=== PATIENT | male | born 1995 | race Caucasian/White ===

== ENCOUNTER 2017-07-07 04:25 | Emergency (ER) | payer BC ==
[2017-07-07] MEDS ORDERED: Acetaminophen/HYDROcodone 325-10 MG Tab PO ONE (04:26)
[2017-07-07] MEDS ORDERED: Bacitracin/Polymyxin B Ophth Oint 3.5 GM Tube EYEBOTH ONE (04:26)
[2017-07-07 04:39] VITALS: BP 148/74
[2017-07-07] MEDS: Tetracaine HCl/PF 0.5% 4 ML Bottle EYEBOTH ONE (05:08)
[2017-07-07] MEDS: Fluorescein 1 MG Ophth Strip EYEBOTH ONE (05:09)
--- NOTE | 2017-07-07 05:32 | EDM.PDOC ---
ED HPI GENERAL MEDICAL PROBLEM - General Chief Complaint: ENT Problem Stated Complaint: EYES BURNING [id number] Time Seen by Provider: 07/07/17 04:45 Source of Information: Reports: Patient - History of Present Illness INITIAL COMMENTS - FREE TEXT/NARRATIVE: ED with complaint of bilateral eye pain, since waking. 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 eyes Pain Score (Numeric/FACES): 10 - Related Data Allergies Allergy/AdvReac Type Severity Reaction Status Date / Time No Known Allergies Allergy Verified 07/07/17 04:35 Home Meds: Home Meds traZODone HCl [Trazodone HCl] 50 mg PO 07/07/17 [History] Past Medical History - Past Health History Medical/Surgical History: Denies Medical/Surgical History HEENT History: Reports: None Cardiovascular History: Reports: None Respiratory History: Reports: None Gastrointestinal History: Reports: None Genitourinary History: Reports: None Musculoskeletal History: Reports: Fracture Other Musculoskeletal History: right hand Neurological History: Reports: None Psychiatric History: Reports: None Endocrine/Metabolic History: Reports: None Hematologic History: Reports: None Immunologic History: Reports: None Oncologic (Cancer) History: Reports: None Dermatologic History: Reports: None - Infectious Disease History Infectious Disease History: Reports: None Social & Family History - Family History Family Medical History: Noncontributory - Tobacco Use Smoking Status *Q: Never Smoker Second Hand Smoke Exposure: No - Caffeine Use Caffeine Use: Reports: None - Recreational Drug Use Recreational Drug Use: No ED ROS ENT - Review of Systems Review Of Systems: ROS reveals no pertinent complaints other than HPI. ED EXAM, ENT - Physical Exam Exam: See Below Exam Limited By: No Limitations General Appearance: Moderate Distress Eye Exam: Bilateral Eye: Conjunctival Injection, PERRL (photosensitivity) Ears: Normal External Exam Head: Normocephalic Respiratory/Chest: No Respiratory Distress Neurological: Alert, Oriented, Normal Cognition Skin: Warm, Dry, Erythema (upper face forehead) ED ENT PROCEDURES - Additional/Other Procedure(s) Other (Free Text) Procedure(s): Eye exam with tetracaine and fluoroscene bilaterally. No corneal abrasion. Pinpoint dark marking 2 oclock position to left eye, appears below surface, no roughness. Possible normal variant coloration or older, no rust ring. Visual testing per nursing. No other FB visulaized. Eyes flushed with NS. Course - Vital Signs Last Recorded V/S: Last Vital Signs Temp 98.3 F 07/07/17 04:39 Pulse 68 07/07/17 04:39 Resp 16 07/07/17 04:39 BP 148/74 H 07/07/17 04:39 Pulse Ox 98 07/07/17 04:39 - Orders/Labs/Meds Meds: Medications Discontinued Medications Generic Name Dose Route Start Last Admin Trade Name Kim PRSonja Reason Stop Dose Admin Hydrocodone Bitart/Acetaminophen Confirm 07/07/17 05:34 07/07/17 05:46 [place] 325-10 Mg Administered 07/07/17 05:35 Not Given Dose 2 tab .ROUTE .STK-MED ONE Hydrocodone Bitart/Acetaminophen 2 tab 07/07/17 04:26 [place] 325-10 Mg PO 07/07/17 04:27 .STK-MED ONE Bacitracin/Polymyxin B Sulfate Confirm 07/07/17 05:33 07/07/17 05:46 Polysporin Ophth Oint Administered 07/07/17 05:34 Not Given Dose 3.5 gm .ROUTE .STK-MED ONE Bacitracin/Polymyxin B Sulfate 3.5 gm 07/07/17 04:26 Polysporin Ophth Oint EYEBOTH 07/07/17 04:27 .STK-MED ONE Fluorescein Sodium 1 mg 07/07/17 04:57 07/07/17 05:09 Ful-Agustina EYEBOTH 07/07/17 04:58 1 mg ONETIME ONE Administration Tetracaine HCl 1 ml 07/07/17 04:57 07/07/17 05:08 Tetracaine 0.5% Steri-Unit [place] EYEBOTH 07/07/17 04:58 2 drop ASDIRECTED ONE Administration - Re-Assessments/Exams Free Text/Narrative Re-Assessment/Exam: Discussed need for follow up at eye clinic for further evaluation later today. 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
[2017-07-07] MEDS: Bacitracin/Polymyxin B Ophth Oint 3.5 GM Tube ONE (05:46)
[2017-07-07] MEDS: Acetaminophen/HYDROcodone 325-10 MG Tab ONE (05:46)
== END 2017-07-07 05:45 | disposition home or self-care (01) ==
LOC: DL.ED 04:25
DX: L53.8 Other specified erythematous conditions (principal); W89.0XXA Exposure to welding light (arc), initial encounter
CPT/HCPCS: 99283; A9270

== ENCOUNTER 2018-09-29 00:01 | Emergency (ER) | payer BC ==
[2018-09-29 00:08] VITALS: BP 146/66
[2018-09-29] MEDS ORDERED: Lidocaine 1% 30 ML SDV INJECT ONE (00:09)
[2018-09-29] MEDS ORDERED: Bacitracin Oint 1 GM U/D Packet TOP ONE (00:09)
--- NOTE | 2018-09-29 00:35 | EDM.PDOC ---
ED HPI GENERAL MEDICAL PROBLEM - General Chief Complaint: Laceration Stated Complaint: CUT LIP [id number] Time Seen by Provider: 09/29/18 00:10 Source of Information: Reports: Patient History Limitations: Reports: No Limitations - History of Present Illness INITIAL COMMENTS - FREE TEXT/NARRATIVE: ED with c/o lip laceration from light globe that fell. - Related Data Allergies Allergy/AdvReac Type Severity Reaction Status Date / Time No Known Allergies Allergy Verified 09/29/18 00:07 Home Meds: Home Meds . [No Known Home Meds] 09/29/18 [History] Past Medical History - Past Health History Medical/Surgical History: Denies Medical/Surgical History HEENT History: Reports: None Cardiovascular History: Reports: None Respiratory History: Reports: None Gastrointestinal History: Reports: None Genitourinary History: Reports: None Musculoskeletal History: Reports: Fracture Other Musculoskeletal History: right hand Neurological History: Reports: None Psychiatric History: Reports: None Endocrine/Metabolic History: Reports: None Hematologic History: Reports: None Immunologic History: Reports: None Oncologic (Cancer) History: Reports: None Dermatologic History: Reports: None - Infectious Disease History Infectious Disease History: Reports: None Social & Family History - Family History Family Medical History: Noncontributory - Tobacco Use Smoking Status *Q: Never Smoker Second Hand Smoke Exposure: No - Caffeine Use Caffeine Use: Reports: None - Alcohol Use Date of Last Drink: 09/28/18 - Recreational Drug Use Recreational Drug Use: No ED ROS GENERAL - Review of Systems Review Of Systems: ROS reveals no pertinent complaints other than HPI. ED EXAM, SKIN/RASH Exam: See Below Exam Limited By: No Limitations General Appearance: Alert, No Apparent Distress Eye Exam: Bilateral Eye: EOMI Ears: Normal External Exam Nose: Normal Inspection Throat/Mouth: Normal Voice, Other (right upper outer lip laceration no dental trauma) Head: Atraumatic, Normocephalic Respiratory/Chest: No Respiratory Distress, Normal Breath Sounds Cardiovascular: Normal Peripheral Pulses Neurological: Alert, Oriented Psychiatric: Normal Affect, Normal Mood Skin: Warm, Dry Location, Skin: Face, Other (5mm vertical right upper outer lip) ED SKIN PROCEDURES - Laceration/Wound Repair Right Other Lac/Wound length In cm: 0.5 (right upper outer lip) Appearance: Superficial Distal NVT: Neuro & Vascular Intact Anesthetic Type: Local Local Anesthesia - Lidocaine (Xylocaine): 1% Plain Local Anesthetic Volume: 1cc Skin Prep: Chlorhexidine (Hibiciens), Saline Closed with: Sutures Suture Size: other (5-0) # of Sutures: 2 Course - Vital Signs Last Recorded V/S: Last Vital Signs Temp 98.5 F 09/29/18 00:06 Pulse 85 09/29/18 00:06 Resp 17 09/29/18 00:06 BP 146/66 H 09/29/18 00:06 Pulse Ox 99 09/29/18 00:06 - Orders/Labs/Meds Meds: Medications Discontinued Medications Generic Name Dose Route Start Last Admin Trade Name Kim PRN Reason Stop Dose Admin Bacitracin 1 dose 09/29/18 00:09 Bacitracin Oint 1 Gm TOP 09/29/18 00:10 ONETIME ONE Lidocaine HCl 30 ml 09/29/18 00:09 09/29/18 00:15 Xylocaine-Mpf 1% INJECT 09/29/18 00:10 30 ml ONETIME ONE Administration Departure - Departure Time of Disposition: 00:30 Disposition: Home, Self-Care 01 Condition: Good Clinical Impression: Lip laceration Qualifiers: Encounter type: initial encounter Qualified Code(s): S01.511A - Laceration without foreign body of lip, initial encounter - Discharge Information *PRESCRIPTION DRUG MONITORING PROGRAM REVIEWED*: Not Applicable *COPY OF PRESCRIPTION DRUG MONITORING REPORT IN PATIENT TAMMY: Not Applicable Instructions: Mouth Laceration Additional Instructions: tylenol or ibuprofen every 4 hours as needed for discomfort cool pack to lip tonight sutures out 7-10 days in clinic follow up if redness swelling or drainage wash area with soap and water at least twice daily gently blot dry
== END 2018-09-29 00:36 | disposition home or self-care (01) ==
LOC: DL.ED 00:01
DX: S01.511A Laceration without foreign body of lip, initial encounter (principal); W19.XXXA Unspecified fall, initial encounter
CPT/HCPCS: 12001; 12011; 99282; J2001

== ENCOUNTER 2023-10-05 07:02 | Day surgery (SDC) | payer BC ==
[~2023-10-05 07:02] MED LIST: Midazolam 1 MG/ML 2 ML SDV ONE; fentaNYL 100 MCG/2 ML SDV ONE
[2023-10-05] MEDS ORDERED: fentaNYL 100 MCG/2 ML SDV IV ONE (07:03)
[2023-10-05] MEDS ORDERED: Midazolam 1 MG/ML 2 ML SDV IV ONE (07:03)
[2023-10-05] MEDS: Dextrose 5%-0.45% NaCl 1,000 ML IV SCH (07:10)
[2023-10-05] MEDS: fentaNYL 100 MCG/2 ML SDV IV ONE ×2 (07:25→07:26)
[2023-10-05] MEDS: Midazolam 1 MG/ML 2 ML SDV IV ONE ×3 (07:26→07:28)
[2023-10-05 07:45] VITALS: BP 126/64; PULSE 77
[2023-10-05] MEDS ORDERED: Midazolam 1 MG/ML 2 ML SDV ONE (07:57)
== END 2023-10-05 09:10 | disposition home or self-care (01) ==
LOC: DL.ENDO 07:02
PROVIDERS: ATTEND Internal Medicine Gastroenterology
DX: K29.50 Unspecified chronic gastritis without bleeding (principal); K21.9 Gastro-esophageal reflux disease without esophagitis; F12.929 Cannabis use, unspecified with intoxication, unspecified; Z86.16 Personal history of COVID-19
CPT/HCPCS: 43239; 87077; J2250; J3010; J7042

== ENCOUNTER 2023-12-26 09:25 | Emergency (ER) | payer BC ==
[2023-12-26] MEDS: Sodium Chloride 0.9% 1,000 ML IV SCH (11:45)
[2023-12-26 11:46] LABS: BASOPHILS PERCENT AUTO 0.3 % (0.0-1.0); HEMATOCRIT 45.7 % (40.0-54.0); HEMOGLOBIN 15.5 g/dL (14.0-18.0); LYMPHOCYTES PERCENT AUTO 15.3 % (20.5-50.1); MEAN CORPUSCULAR HEMOGLOBIN 31.1 pg (27.0-34.0); MEAN CORPUSCULAR HGB CONC 33.9 g/dL (33.0-35.0); MEAN CORPUSCULAR VOLUME 91.6 fL (80-100); MONOCYTES PERCENT AUTO 10.4 % (2-8); PLATELET COUNT,PLT 218 10^3/uL (150-450); RED BLOOD CELL COUNT 4.99 10^6/uL (4.6-6.2)
[2023-12-26 12:03] LABS: AMYLASE 43 U/L (25-115); LIPASE 37 U/L (16-77)
[2023-12-26] MEDS: Iopamidol 612 MG/ML 100 ML Bottle IVPUSH ONE (12:03)
[2023-12-26 12:08] LABS: A/G RATIO 1.2; ALBUMIN 4.1 g/dL (3.4-5.0); ANION GAP 11.3 mEq/L (7-13); BILIRUBIN TOTAL 0.4 mg/dL (0.2-1.0); C-REACTIVE PROTEIN 0.55 ng/dL (<=0.50); CALCIUM 9.1 mg/dL (8.5-10.1); EST CRCL DRUG DOSING (CG) 132.61 mL/min; POTASSIUM,K 4.3 mmol/L (3.5-5.1); PROTEIN TOTAL,TP 7.4 g/dL (6.4-8.2)
[2023-12-26 12:31] LABS: SEDIMENTATION RATE MANUAL 2 mm/hr (0-15)
[2023-12-26] MEDS: Iopamidol 755 Mg/ML 100 ML Bottle IVPUSH ONE (13:08)
[2023-12-26 13:10] LABS: BILIRUBIN,URINE NEGATIVE (NEGATIVE); COLOR,URINE YELLOW (YELLOW); GLUCOSE,URINE NEGATIVE (NEGATIVE); KETONES,URINE 15 (NEGATIVE); LEUKOCYTE ESTERASE,URINE NEGATIVE (NEGATIVE); NITRITE,URINE NEGATIVE (NEGATIVE); OCCULT BLOOD,URINE SMALL (NEGATIVE); PROTEIN,URINE NEGATIVE (NEGATIVE); UROBILINOGEN,URINE 0.2 mg/dL (0.2-1.0)
[2023-12-26 13:11] LABS: APPEARANCE,URINE SLIGHTLY CLOUDY (CLEAR)
[2023-12-26 13:47] VITALS: BP 132/80; PULSE 80
[2023-12-26 14:05] LABS: BACTERIA,URINE FEW /HPF (0-FEW/HPF); EPITHELIAL CELLS,URINE FEW /HPF (NOT SEEN); MUCUS,URINE FEW /LPF (NOT SEEN); WBC,URINE 0-5 /HPF (0-5/HPF)
== END 2023-12-26 13:44 | disposition home or self-care (01) ==
LOC: DL.ED 09:25
DX: K52.9 Noninfective gastroenteritis and colitis, unspecified (principal); K50.90 Crohn's disease, unspecified, without complications; Z86.16 Personal history of COVID-19; Z79.899 Other long term (current) drug therapy
CPT/HCPCS: 36415; 74177; 80053; 81001; 82150; 83690; 83735; 85025; 85651; 86140; 96360; 99284; J7030; Q9967

== ENCOUNTER 2024-03-06 06:29 | Day surgery (SDC) | payer BC ==
[2024-03-06] MEDS ORDERED: Midazolam 1 MG/ML 2 ML SDV IV ONE (06:30)
[2024-03-06] MEDS ORDERED: fentaNYL 100 MCG/2 ML SDV IV ONE (06:30)
[2024-03-06] MEDS: Dextrose 5%-0.45% NaCl 1,000 ML IV SCH (06:49)
[2024-03-06] MEDS: fentaNYL 100 MCG/2 ML SDV IV ONE ×6 (07:35→07:47)
[2024-03-06] MEDS: Midazolam 1 MG/ML 2 ML SDV IV ONE ×6 (07:36→07:42)
[2024-03-06 08:53] VITALS: BP 133/59; PULSE 62
== END 2024-03-06 09:08 | disposition home or self-care (01) ==
LOC: DL.ENDO 06:29
PROVIDERS: ATTEND Internal Medicine Gastroenterology
DX: K62.5 Hemorrhage of anus and rectum (principal)
CPT/HCPCS: J2250; J3010; J7799